=== PATIENT | female | born 1940 | race American Indian/Alaskan Native ===

== ENCOUNTER 2018-10-05 07:01 | Inpatient (IN) | payer OTHER ==
[2018-10-05] MEDS ORDERED: NACL 0.9% 1000 ML 1,000 ML IV ONE (08:13)
[2018-10-05] MEDS ORDERED: PROTONIX IV ONE (08:13)
[2018-10-05] MEDS ORDERED: ZOFRAN IV ONE (08:21)
[2018-10-05] MEDS ORDERED: MORPHINE IV ONE (08:21)
[2018-10-05] MEDS ORDERED: MERREM 1,000 MG in NACL 0.9% 100 ML IV ONE (08:22)
[2018-10-05 08:23] LABS: Basophils % (Auto) 0.3 % (0.0-1.8); Eosinophils # (Auto) 0.2 K/mm3 (0.0-0.4); Eosinophils % (Auto) 1.3 % (0.0-4.3); Hematocrit 34.6 % (30.3-42.9); Hemoglobin 11.5 gm/dl (10.1-14.3); Lymphocytes % (Auto) 6.9 % (13.4-35.0); Mean Corpuscular HGB Conc 33 % (30-34); Mean Corpuscular Volume 83 fl (79-97); Monocytes # (Auto) 1.8 K/mm3 (0.0-0.8); Monocytes % (Auto) 12.4 % (0.0-7.3); Platelet Count 379 K/mm3 (140-440); Red Blood Count 4.19 M/mm3 (3.65-5.03); Red Cell Distribution Width 14.9 % (13.2-15.2)
[2018-10-05 08:28] LABS: Bacteria,Urine 4+ /HPF (Negative); Bilirubin,Urine NEG (Negative); Blood,Urine MOD (Negative); Color,Urine Amber (Yellow); Mucus,Urine FEW /HPF
[2018-10-05 08:29] LABS: WBC,Urine > 182.0 /HPF (0.0-6.0)
[2018-10-05 08:31] LABS: Alanine Aminotransferase 36 units/L (7-56); Albumin 2.8 g/dL (3.9-5); BUN/Creatinine Ratio 13; Blood Urea Nitrogen 10 mg/dL (7-17); Calcium 9.7 mg/dL (8.4-10.2); Hemolysis Index 0
[2018-10-05] MEDS ORDERED: VANCOMYCIN 1,500 MG in NACL 0.9% 500 ML 500 ML IV ONE (08:45)
[2018-10-05] MEDS ORDERED: VANCOMYCIN PHARMACY TO DOSE IV SCH (09:00)
--- NOTE | 2018-10-05 09:28 | Emergency Department Report ---
ED Abdominal Pain HPI - General Chief Complaint: Abdominal Pain Stated Complaint: ABD PAIN Time Seen by Provider: 10/05/18 07:53 Source: patient, family Mode of arrival: Ambulatory Limitations: No Limitations - History of Present Illness Initial Comments: 78-year-old female from [place] with a history of reflux. She complains of non-postprandial abdominal pain in the epigastric region which is intermittent in nature. She is a poor historian. She is here with another lady who states that they went to a local physician and were given medicine for reflux. In addition the patient takes omeprazole chronically [place]. She's had no prior abdominal surgery. Pain does not apparently radiate. Has not been associated with fever or chills. She does not have a regular physician in this country but went to a "[facility] MD Complaint: abdominal pain -: days(s), week(s) Location: epigastric Radiation: none Migration to: no migration Quality: aching Consistency: intermittent Improves With: nothing Worsens With: nothing Associated Symptoms: constipation. denies: nausea, vomiting, diarrhea, fever, chills - Related Data Allergies Allergy/AdvReac Type Severity Reaction Status Date / Time No Known Allergies Allergy Unverified 10/05/18 07:11 ED Review of Systems ROS: Stated complaint: ABD PAIN Other details as noted in HPI Constitutional: denies: chills, fever Eyes: denies: eye pain, eye discharge, vision change ENT: denies: ear pain, throat pain Respiratory: denies: cough, shortness of breath, wheezing Cardiovascular: denies: chest pain, palpitations Endocrine: no symptoms reported Gastrointestinal: as per HPI (chronic reflux symptoms), abdominal pain. denies: diarrhea, constipation Genitourinary: denies: urgency, dysuria, discharge Musculoskeletal: denies: back pain, joint swelling, arthralgia Skin: denies: rash, lesions Neurological: denies: headache, weakness, paresthesias Psychiatric: denies: anxiety, depression Hematological/Lymphatic: denies: easy bleeding, easy bruising ED Past Medical Hx - Past Medical History Hx Hypertension: Yes Additional medical history: GERD - Surgical History Past Surgical History?: No - Social History Smoking Status: Never Smoker Substance Use Type: None ED Physical Exam - General Limitations: No Limitations General appearance: alert, in no apparent distress - Head Head exam: Present: atraumatic, normocephalic - Eye Eye exam: Present: normal appearance. Absent: scleral icterus - ENT ENT exam: Present: mucous membranes moist - Neck Neck exam: Present: normal inspection. Absent: tenderness, meningismus - Respiratory Respiratory exam: Present: normal lung sounds bilaterally. Absent: respiratory distress - Cardiovascular Cardiovascular Exam: Present: regular rate, normal rhythm. Absent: systolic mu rmur, diastolic murmur, rubs, gallop - GI/Abdominal GI/Abdominal exam: Present: soft, tenderness (mild epigastric tenderness), normal bowel sounds. Absent: distended, guarding, rebound, rigid, organomegaly, mass, bruit, pulsatile mass, hernia - Extremities Exam Extremities exam: Present: normal inspection - Back Exam Back exam: Present: normal inspection - Neurological Exam Neurological exam: Present: alert, oriented X3, CN II-XII intact. Absent: motor sensory deficit - Psychiatric Psychiatric exam: Present: normal affect, normal mood - Skin Skin exam: Present: warm, dry, intact, normal color. Absent: rash ED Course Vital Signs 10/05/18 10/05/18 10/05/18 07:15 08:02 08:04 Temperature 98.3 F 99.7 F H Pulse Rate 102 H 96 H Respiratory 18 17 17 Rate Blood Pressure 133/72 Blood Pressure 128/66 [Right] O2 Sat by Pulse 98 96 96 Oximetry - Reevaluation(s) Reevaluation #1: Discussed with hospitalist and admitted to their service. Surgical consultation. Antibiotic coverage. Surgery and urology consultation. 10/05/18 10:32 ED Medical Decision Making - Lab Data Result diagrams: 10/05/18 07:34 10/05/18 07:34 Laboratory Results - last 24 hr 10/05/18 10/05/18 10/05/18 07:34 07:34 07:34 WBC 14.6 H RBC 4.19 Hgb 11.5 Hct 34.6 MCV 83 MCH 28 MCHC 33 RDW 14.9 Plt Count 379 Lymph % (Auto) 6.9 L [place] % (Auto) 12.4 H Eos % (Auto) 1.3 Baso % (Auto) 0.3 Lymph # 1.0 L [place] # 1.8 H Eos # 0.2 Baso # 0.0 Seg Neutrophils % 79.1 H Seg Neutrophils # 11.5 H Sodium 136 L Potassium 3.3 L Chloride 94.1 L Carbon Dioxide 27 Anion Gap 18 BUN 10 Creatinine 0.8 Estimated GFR > 60 BUN/Creatinine Ratio 13 Glucose 106 H Calcium 9.7 Total Bilirubin 0.50 AST 41 H ALT 36 Alkaline Phosphatase 133 H Troponin T < 0.010 Total Protein 8.0 Albumin 2.8 L Albumin/Globulin Ratio 0.5 Lipase 16 Urine Color Urine Turbidity Urine pH Ur Specific [place] Urine Protein Urine Glucose (UA) Urine Ketones Urine Blood Urine Nitrite Urine Bilirubin Urine Urobilinogen Ur Leukocyte Esterase Urine WBC (Auto) Urine RBC (Auto) U Epithel Cells (Auto) Urine Bacteria (Auto) Urine WBC Clumps Ur Transition Epith Cell Urine Mucus 10/05/18 Unknown WBC RBC Hgb Hct MCV MCH MCHC RDW Plt Count Lymph % (Auto) [place] % (Auto) Eos % (Auto) Baso % (Auto) Lymph # [place] # Eos # Baso # Seg Neutrophils % Seg Neutrophils # Sodium Potassium Chloride Carbon Dioxide Anion Gap BUN Creatinine Estimated GFR BUN/Creatinine Ratio Glucose Calcium Total Bilirubin AST ALT Alkaline Phosphatase Troponin T Total Protein Albumin Albumin/Globulin Ratio Lipase Urine Color [place] Urine Turbidity Cloudy Urine pH 7.0 Ur Specific [place] 1.010 Urine Protein 30 mg/dl Urine Glucose (UA) Neg Urine Ketones Neg Urine Blood Mod Urine Nitrite Neg Urine Bilirubin Neg Urine Urobilinogen 2.0 Ur Leukocyte Esterase Lg Urine WBC (Auto) > 182.0 H Urine RBC (Auto) 26.0 U Epithel Cells (Auto) 2.0 Urine Bacteria (Auto) 4+ Urine WBC Clumps 3+ Ur Transition Epith Cell 3 Urine Mucus Few - EKG Data -: EKG Interpreted by Pr EKG shows normal: sinus rhythm, axis, intervals, QRS complexes, ST-T waves Rate: tachycardia (at 100) - EKG Data Interpretation: no acute changes, nonspecific ST-T wave basil - Radiology Data Radiology results: report reviewed FINDINGS: There is bibasilar atelectasis and/or infiltrate. The gallbladder is distended. There is a 4-5 cm irregular mass involving the gallbladder. Proximal to the mass in the gallbladder is distended and there are several gallstones. In addition there is an adjacent collection of fluid which extends only and probably communicates with the gallbladder. This may be a distended gallbladder fundus distal to the constricting mass or could be a adjacent choledocholithiasis or biloma. Findings are worrisome for malignancy. There is also biliary dilatation although mass does not appear to obstruct the CBD. The mass abuts and could involve the gastric antrum. There is a staghorn calculus in the left renal pelvis. There is moderate left hydronephrosis. There are small renal cysts bilaterally. There is a 3.1 cm left adrenal gland mass. There is also right adrenal gland thickening. There are aortoiliac atherosclerotic calcifications. There is no abdominal aortic aneurysm. There is no evidence for intestinal obstruction. The appendix is normal. There is diverticulosis predominantly involving the sigmoid colon. There is no acute diverticulitis seen. Bladder is unremarkable. There are small calcified uterine fibroids. IMPRESSION: 4-5 cm irregular gallbladder mass which is concerning for gallbladder malignancy. There is a fluid collection adjacent to the gallbladder which probably communicates with the gallbladder lumen. This could be a distended gallbladder fundus proximal to area of gallbladder constriction or could represent a biloma or a choledochocele. There is cholelithiasis. There is intrahepatic and extrahepatic biliary dilatation as well distention of the gallbladder distal to the mass. Findings are worrisome for distal biliary obstruction by a cause other than the described gallbladder mass. Distal CBD stone not seen. Small mass at the ampulla not excluded. Left staghorn calculus with moderate left hydronephrosis. Diverticulosis. No acute diverticulitis. Some bibasilar atelectasis and/or infiltrate seen. Critical care attestation.: If time is entered above; I have spent that time in minutes in the direct care of this critically ill patient, excluding procedure time. ED Disposition Clinical Impression: Cholecystitis, Staghorn calculus, Adrenal mass, left UTI (urinary tract infection) Qualifiers: Urinary tract infection type: site unspecified Hematuria presence: with hematuria Qualified Code(s): N39.0 - Urinary tract infection, site not specified; R31.9 - Hematuria, unspecified Abdominal pain Qualifiers: Abdominal location: unspecified location Qualified Code(s): R10.9 - Unspecified abdominal pain Disposition: OP ADMIT IP TO THIS HOSP Is pt being admited?: Yes Does the pt Need Aspirin: No Condition: Stable Instructions: Abdominal Pain (ED) Referrals: JONATHAN ACUNA MD [Primary Care Provider] - 3-5 Days Time of Disposition: 10:32
--- NOTE | 2018-10-05 10:15 | Cat Scan Report ---
PROCEDURE: CT ABDOMEN PELVIS W CON TECHNIQUE: CT of the abdomen and pelvis was performed. IV contrast was administered. Axial images and coronal and sagittal reformatted images were obtained. HISTORY: epigastric pain COMPARISON: None FINDINGS: There is bibasilar atelectasis and/or infiltrate. The gallbladder is distended. There is a 4-5 cm irregular mass involving the gallbladder. Proximal to the mass in the gallbladder is distended and there are several gallstones. In addition there is an a djacent collection of fluid which extends only and probably communicates with the gallbladder. This m ay be a distended gallbladder fundus distal to the constricting mass or could be a adjacent choledoch olithiasis or biloma. Findings are worrisome for malignancy. There is also biliary dilatation although mass does not appear to obstruct the CBD. The mass abuts and could involve the gastric antrum. There is a staghorn calculus in the left renal pelvis. There is moderate left hydronephrosis. There are small renal cysts bilaterally. There is a 3.1 cm left adrenal gland mass. There is also right adrenal gland thickening. There are aortoiliac atherosclerotic calcifications. There is no abdominal aortic aneurysm. There is no evidence for intestinal obstruction. The appendix is normal. There is diverticulosis predominantly involving the sigmoid colon. There is no acute diverticulitis s een. Bladder is unremarkable. There are small calcified uterine fibroids. IMPRESSION: 4-5 cm irregular gallbladder mass which is concerning for gallbladder malignancy. There is a fluid co llection adjacent to the gallbladder which probably communicates with the gallbladder lumen. This cou ld be a distended gallbladder fundus proximal to area of gallbladder constriction or could represent a biloma or a choledochocele. There is cholelithiasis. There is intrahepatic and extrahepatic biliary dilatation as well distention of the gallbladder distal to the mass. Findings are worrisome for distal biliary obstruction by a ca use other than the described gallbladder mass. Distal CBD stone not seen. Small mass at the ampulla n ot excluded. Left staghorn calculus with moderate left hydronephrosis. Diverticulosis. No acute diverticulitis. Some bibasilar atelectasis and/or infiltrate seen. This document is electronically signed by Geraldine Marinelli MD., October 05 2018 10:13:24 AM ET
--- NOTE | 2018-10-05 11:28 | Progress Note ---
Assessment and Plan Assessment and plan: Gallbladder mass. 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 There is a fluid collection adjacent to the gallbladder which probably communicates with the gallbladder lumen. This could be a distended gallbladder fundus proximal to area of gallbladder constriction or could represent a biloma or a choledochocele. Surgery consulted Sepsis. Etiology likely secondary to UTI. Follow-up blood and urine cultures. Continue antibiotics. Left staghorn calculus with moderate left hydronephrosis. Urology consulted. Gross hematuria. Etiology secondary to above. Diverticulosis. No acute diverticulitis. Cholelithiasis +/- Cholecystitis. Surgery consultation pending. Cont. IV abx History Interval history: 78-year-old female from [place] with a history of reflux. She complains of non-postprandial abdominal pain in the epigastric region which is intermittent in nature. She is a poor historian. She is here with another lady who states that they went to a local physician and were given medicine for reflux. In addition the patient takes omeprazole chronically [place]. She's had no prior abdominal surgery. Pain does not apparently radiate. Has not been associated with fever or chills. Hospitalist Physical - Constitutional Vitals: Temp Pulse Resp BP Pulse Ox 99.7 F H 90 18 152/77 96 10/05/18 08:02 10/05/18 10:45 10/05/18 10:45 10/05/18 10:45 10/05/18 08:04 General appearance: Present: no acute distress, well-nourished - EENT Eyes: Present: PERRL, EOM intact ENT: hearing intact, clear oral mucosa, dentition normal - Neck Neck: Present: supple, normal ROM - Respiratory Respiratory effort: normal Respiratory: bilateral: CTA - Cardiovascular Rhythm: regular Heart Sounds: Present: S1 & S2. Absent: gallop, rub - Extremities Extremities: no ischemia, No edema, Full ROM - Abdominal General gastrointestinal: soft, non-tender, non-distended, normal bowel sounds - Integumentary Integumentary: Present: clear, warm, dry - Neurologic Neurologic: CNII-XII intact, moves all extremities Results - Labs CBC & Chem 7: 10/05/18 07:34 10/05/18 07:34 Labs: Laboratory Last Values WBC 14.6 K/mm3 (4.5-11.0) H 10/05/18 07:34 RBC 4.19 M/mm3 (3.65-5.03) 10/05/18 07:34 Hgb 11.5 gm/dl (10.1-14.3) 10/05/18 07:34 Hct 34.6 % (30.3-42.9) 10/05/18 07:34 MCV 83 fl (79-97) 10/05/18 07:34 MCH 28 pg (28-32) 10/05/18 07:34 MCHC 33 % (30-34) 10/05/18 07:34 RDW 14.9 % (13.2-15.2) 10/05/18 07:34 Plt Count 379 K/mm3 (140-440) 10/05/18 07:34 Lymph % (Auto) 6.9 % (13.4-35.0) L 10/05/18 07:34 [place] % (Auto) 12.4 % (0.0-7.3) H 10/05/18 07:34 Eos % (Auto) 1.3 % (0.0-4.3) 10/05/18 07:34 Baso % (Auto) 0.3 % (0.0-1.8) 10/05/18 07:34 Lymph # 1.0 K/mm3 (1.2-5.4) L 10/05/18 07:34 [place] # 1.8 K/mm3 (0.0-0.8) H 10/05/18 07:34 Eos # 0.2 K/mm3 (0.0-0.4) 10/05/18 07:34 Baso # 0.0 K/mm3 (0.0-0.1) 10/05/18 07:34 Seg Neutrophils % 79.1 % (40.0-70.0) H 10/05/18 07:34 Seg Neutrophils # 11.5 K/mm3 (1.8-7.7) H 10/05/18 07:34 Sodium 136 mmol/L (137-145) L 10/05/18 07:34 Potassium 3.3 mmol/L (3.6-5.0) L 10/05/18 07:34 Chloride 94.1 mmol/L (98-107) L 10/05/18 07:34 Carbon Dioxide 27 mmol/L (22-30) 10/05/18 07:34 18 mmol/L 10/05/18 07:34 BUN 10 mg/dL (7-17) 10/05/18 07:34 0.8 mg/dL (0.7-1.2) 10/05/18 07:34 Estimated GFR > 60 ml/min 10/05/18 07:34 13 % 10/05/18 07:34 Glucose 106 mg/dL (65-100) H 10/05/18 07:34 Calcium 9.7 mg/dL (8.4-10.2) 10/05/18 07:34 0.50 mg/dL (0.1-1.2) 10/05/18 07:34 AST 41 units/L (5-40) H 10/05/18 07:34 ALT 36 units/L (7-56) 10/05/18 07:34 133 units/L (35-129) H 10/05/18 07:34 < 0.010 ng/mL (0.00-0.029) 10/05/18 07:34 8.0 g/dL (6.3-8.2) 10/05/18 07:34 2.8 g/dL (3.9-5) L 10/05/18 07:34 0.5 % 10/05/18 07:34 16 units/L (13-60) 10/05/18 07:34 [place] (Yellow) 10/05/18 Unknown Cloudy (Clear) 10/05/18 Unknown 7.0 (5.0-7.0) 10/05/18 Unknown Ur Specific [place] 1.010 (1.003-1.030) 10/05/18 Unknown 30 mg/dl mg/dL (Negative) 10/05/18 Unknown Neg mg/dL (Negative) 10/05/18 Unknown Neg mg/dL (Negative) 10/05/18 Unknown Mod (Negative) 10/05/18 Unknown Neg (Negative) 10/05/18 Unknown Neg (Negative) 10/05/18 Unknown 2.0 mg/dL (<2.0) 10/05/18 Unknown Ur Leukocyte Esterase Lg (Negative) 10/05/18 Unknown > 182.0 /HPF (0.0-6.0) H 10/05/18 Unknown 26.0 /HPF (0.0-6.0) 10/05/18 Unknown U Epithel Cells (Auto) 2.0 /HPF (0-13.0) 10/05/18 Unknown 4+ /HPF (Negative) 10/05/18 Unknown 3+ /HPF 10/05/18 Unknown Ur Transition Epith Cell 3 /HPF 10/05/18 Unknown Few /HPF 10/05/18 Unknown Active Medications - Current Medications Current Medications: Generic Name Dose Route Start Last Admin Trade Name Freq PRN Reason Stop Dose Admin Sodium Chloride 1,000 mls @ 125 mls/hr 10/05/18 08:13 10/05/18 10:07 Nacl 0.9% 1000 Ml IV 10/05/18 16:12 125 mls/hr ONCE ONE Administration
[2018-10-05] MEDS ORDERED: ZOFRAN IV PRN (11:45)
[2018-10-05] MEDS ORDERED: SODIUM CHLORIDE FLUSH SYRINGE 10 ML IV PRN (11:45)
[2018-10-05 12:29] LABS: Bacteria,Urine 1+ /HPF (Negative); Bilirubin,Urine NEG (Negative); Blood,Urine SM (Negative); Color,Urine Yellow (Yellow); Mucus,Urine FEW /HPF; Protein,Urine <15 mg/dL mg/dL (Negative); Urobilinogen,Urine < 2.0 mg/dL (<2.0)
--- NOTE | 2018-10-05 13:48 | Ultrasound Report ---
PROCEDURE: US ABDOMEN LIMITED TECHNIQUE: Sonography of the right upper quadrant abdomen performed. HISTORY: epigastric pain abn GB on CT COMPARISON: None FINDINGS: There is no focal liver lesions seen. There is mild intrahepatic and extrahepatic biliary dilatation. The proximal common bile duct measure s 8 mm. The gallbladder is distended. There is cholelithiasis, sludge and wall thickening. There is a complex masslike area involving the gallbladder fundus which measures 8.4 x 5.1 x 6.6 cm. This may be a comb ination of the mass and cystic structure seen on CT. Findings could be malignancy or represent an inf lammatory mass There is no right hydronephrosis. IMPRESSION: Distended gallbladder with cholelithiasis. Mild biliary dilatation. Complex mass involving the gallbladder fundus measuring 8.4 x 5.1 x 6.6 cm. This could be malignancy or represent an inflammatory mass. This document is electronically signed by Geraldine Marinelli MD., October 05 2018 01:46:34 PM ET
--- NOTE | 2018-10-05 17:05 | Consultation ---
History of Present Illness Consult date: 10/05/18 Reason for consult: abdominal pain Chief complaint: abdominal pain - History of present illness History of present illness: 78 yo F with hx of HTN presents to ER with c/o upper abdominal pain for the last 1week. She is visiting her family from [place]. She states the pain is crampy, started suddenly and is now intermittent and severe at times. It starts in the epigastrum and radiates to the right abdomen. She states she had pain like this before and was evaluated by physicians in [place]. She takes antacid medications. She denies f/c, cp, sob. She is having nausea but no vomiting. Last meal was yesterday at dinner. She states she was eating pizza when pain started. She is having BMs but states she is constipated Past History Past Medical History: hypertension Past Surgical History: No surgical history Social history: no significant social history Family history: no significant family history Medications and Allergies Allergies Allergy/AdvReac Type Severity Reaction Status Date / Time No Known Allergies Allergy Unverified 10/05/18 07:11 Active Meds: Active Medications Acetaminophen (Tylenol) 650 mg PO Q4H PRN PRN Reason: Pain MILD(1-3)/Fever >100.5/PHIPPS Enoxaparin Sodium (Lovenox) 40 mg SUB-Q QDAY@2200 CRYSTAL Vancomycin HCl 1,250 mg/ (Sodium Chloride) 275 mls @ 166.667 mls/hr IV Q12H CRYSTAL Cefepime HCl (Maxipime/Ns 2 Gm/100 Ml) 2 gm in 100 mls @ 200 mls/hr IV Q12HR CRYSTAL; Protocol Metronidazole (Flagyl 500 Mg/100 Ml) 500 mg in 100 mls @ 100 mls/hr IV Q8HR CRYSTAL; Protocol Ondansetron HCl (Zofran) 4 mg IV Q8H PRN PRN Reason: Nausea And Vomiting Sodium Chloride (Sodium Chloride Flush Syringe 10 Ml) 10 ml IV BID CRYSTAL Sodium Chloride (Sodium Chloride Flush Syringe 10 Ml) 10 ml IV PRN PRN PRN Reason: LINE FLUSH Review of Systems All systems: negative (10 pt ros performed and negative except for that listed in HPI) Exam Vital Signs Temp Pulse Resp BP Pulse Ox 98.3 F 102 H 18 133/72 98 10/05/18 07:15 10/05/18 07:15 10/05/18 07:15 10/05/18 07:15 10/05/18 07:15 Narrative exam: Gen: AAOx3. NAD ENT: no scleral icterus or conjunctival pallor CV: s1, s2+ resp; even and unlabored Abd: soft, ND, + RUQ and epigastric TTP. no r/r/g Ext: no c/c/e Results - Labs 10/05/18 07:34 10/05/18 07:34 Abnormal lab results 10/05/18 10/05/18 10/05/18 Range/Units 07:34 07:34 Unknown WBC 14.6 H (4.5-11.0) K/mm3 Lymph % (Auto) 6.9 L (13.4-35.0) % [place] % (Auto) 12.4 H (0.0-7.3) % Lymph # 1.0 L (1.2-5.4) K/mm3 [place] # 1.8 H (0.0-0.8) K/mm3 Seg Neutrophils % 79.1 H (40.0-70.0) % Seg Neutrophils # 11.5 H (1.8-7.7) K/mm3 Sodium 136 L (137-145) mmol/L Potassium 3.3 L (3.6-5.0) mmol/L Chloride 94.1 L (98-107) mmol/L Glucose 106 H (65-100) mg/dL AST 41 H (5-40) units/L Alkaline Phosphatase 133 H (35-129) units/L Albumin 2.8 L (3.9-5) g/dL Urine WBC (Auto) > 182.0 H (0.0-6.0) /HPF 10/05/18 Range/Units Unknown WBC (4.5-11.0) K/mm3 Lymph % (Auto) (13.4-35.0) % [place] % (Auto) (0.0-7.3) % Lymph # (1.2-5.4) K/mm3 [place] # (0.0-0.8) K/mm3 Seg Neutrophils % (40.0-70.0) % Seg Neutrophils # (1.8-7.7) K/mm3 Sodium (137-145) mmol/L Potassium (3.6-5.0) mmol/L Chloride (98-107) mmol/L Glucose (65-100) mg/dL AST (5-40) units/L Alkaline Phosphatase (35-129) units/L Albumin (3.9-5) g/dL Urine WBC (Auto) 141.0 H (0.0-6.0) /HPF Diabetes panel 10/05/18 Range/Units 07:34 Sodium 136 L (137-145) mmol/L Potassium 3.3 L (3.6-5.0) mmol/L Chloride 94.1 L (98-107) mmol/L Carbon Dioxide 27 (22-30) mmol/L BUN 10 (7-17) mg/dL Creatinine 0.8 (0.7-1.2) mg/dL Glucose 106 H (65-100) mg/dL Calcium 9.7 (8.4-10.2) mg/dL AST 41 H (5-40) units/L ALT 36 (7-56) units/L Alkaline Phosphatase 133 H (35-129) units/L Total Protein 8.0 (6.3-8.2) g/dL Albumin 2.8 L (3.9-5) g/dL Calcium panel 10/05/18 Range/Units 07:34 Calcium 9.7 (8.4-10.2) mg/dL Albumin 2.8 L (3.9-5) g/dL Pituitary panel 10/05/18 Range/Units 07:34 Sodium 136 L (137-145) mmol/L Potassium 3.3 L (3.6-5.0) mmol/L Chloride 94.1 L (98-107) mmol/L Carbon Dioxide 27 (22-30) mmol/L BUN 10 (7-17) mg/dL Creatinine 0.8 (0.7-1.2) mg/dL Glucose 106 H (65-100) mg/dL Calcium 9.7 (8.4-10.2) mg/dL Adrenal panel 10/05/18 Range/Units 07:34 Sodium 136 L (137-145) mmol/L Potassium 3.3 L (3.6-5.0) mmol/L Chloride 94.1 L (98-107) mmol/L Carbon Dioxide 27 (22-30) mmol/L BUN 10 (7-17) mg/dL Creatinine 0.8 (0.7-1.2) mg/dL Glucose 106 H (65-100) mg/dL Calcium 9.7 (8.4-10.2) mg/dL Total Bilirubin 0.50 (0.1-1.2) mg/dL AST 41 H (5-40) units/L ALT 36 (7-56) units/L Alkaline Phosphatase 133 H (35-129) units/L Total Protein 8.0 (6.3-8.2) g/dL Albumin 2.8 L (3.9-5) g/dL - Imaging CT scan - abdomen: report reviewed, image reviewed CT scan - pelvis: report reviewed, image reviewed US - abdomen: report reviewed, image reviewed Assessment and Plan 78 yo F with gallbladder mass, UTI Plan: 1. clear liquids, NPO p MN 2. MRI abdomen to further evaluate mass, GB, and liver, and biliary system 3. IV abx 4. prn pain control 5. IVF 6. tumor markers May need to consider transfer to tertiary care center if mass is found to invade adjacent structures. Discussed plan with patient. Thank you, please call with questions
[2018-10-05] MEDS: TYLENOL PO PRN ×2 (18:21→22:10)
[2018-10-05] MEDS: FLAGYL 500 MG/100 ML 500 MG/100 ML BAG IV SCH ×2 (18:21→22:21)
[2018-10-05] MEDS: MORPHINE IV PRN (19:39)
[2018-10-05] MEDS ORDERED: LOVENOX SUB-Q SCH (22:00)
[2018-10-05] MEDS: SODIUM CHLORIDE FLUSH SYRINGE 10 ML IV SCH (22:11)
[2018-10-05] MEDS: MAXIPIME/NS 2 GM/100 ML 2 GM/100 ML BAG IV SCH (22:11)
[2018-10-06] MEDS ORDERED: VANCOMYCIN 1,250 MG in NACL 0.9% 250ML 250 ML IV SCH ×2 (01:00→22:00)
[2018-10-06 06:18] LABS: BUN/Creatinine Ratio 14; Blood Urea Nitrogen 10 mg/dL (7-17); Hemolysis Index 69
[2018-10-06 06:20] LABS: Basophils # (Auto) 0.1 K/mm3 (0.0-0.1); Basophils % (Auto) 0.7 % (0.0-1.8); Eosinophils # (Auto) 0.2 K/mm3 (0.0-0.4); Eosinophils % (Auto) 1.6 % (0.0-4.3); Hematocrit 33.3 % (30.3-42.9); Hemoglobin 10.8 gm/dl (10.1-14.3); Lymphocytes % (Auto) 7.3 % (13.4-35.0); Mean Corpuscular HGB Conc 32 % (30-34); Mean Corpuscular Volume 84 fl (79-97); Monocytes # (Auto) 1.8 K/mm3 (0.0-0.8); Monocytes % (Auto) 13.4 % (0.0-7.3); Platelet Count 365 K/mm3 (140-440); Red Blood Count 3.97 M/mm3 (3.65-5.03)
[2018-10-06] MEDS: FLAGYL 500 MG/100 ML 500 MG/100 ML BAG IV SCH (06:21)
--- NOTE | 2018-10-06 08:23 | Consultation ---
History of Present Illness - Reason for Consult Consult date: 10/06/18 Past History Past Medical History: hypertension Past Surgical History: No surgical history Social history: no significant social history Family history: no significant family history Medications and Allergies Allergies Allergy/AdvReac Type Severity Reaction Status Date / Time No Known Allergies Allergy Unverified 10/05/18 07:11 Active Meds: Active Medications Acetaminophen (Tylenol) 650 mg PO Q4H PRN PRN Reason: Pain MILD(1-3)/Fever >100.5/PHIPPS Last Admin: 10/05/18 22:10 Dose: 650 mg Documented by: Enoxaparin Sodium (Lovenox) 40 mg SUB-Q QDAY@2200 CRYSTAL Last Admin: 10/05/18 22:11 Dose: 40 mg Documented by: Cefepime HCl (Maxipime/Ns 2 Gm/100 Ml) 2 gm in 100 mls @ 200 mls/hr IV Q12HR CRYSTAL; Protocol Last Admin: 10/05/18 22:11 Dose: 200 mls/hr Documented by: Metronidazole (Flagyl 500 Mg/100 Ml) 500 mg in 100 mls @ 100 mls/hr IV Q8HR CRYSTAL; Protocol Last Admin: 10/06/18 06:21 Dose: 100 mls/hr Documented by: Vancomycin HCl 1,250 mg/ (Sodium Chloride) 275 mls @ 166.667 mls/hr IV Q24H CRYSTAL Morphine Sulfate (Morphine) 2 mg IV Q4H PRN PRN Reason: ABD PAIN Last Admin: 10/05/18 19:39 Dose: 2 mg Documented by: Ondansetron HCl (Zofran) 4 mg IV Q8H PRN PRN Reason: Nausea And Vomiting Sodium Chloride (Sodium Chloride Flush Syringe 10 Ml) 10 ml IV BID [facility] Last Admin: 10/05/18 22:11 Dose: 10 ml Documented by: Sodium Chloride (Sodium Chloride Flush Syringe 10 Ml) 10 ml IV PRN PRN PRN Reason: LINE FLUSH Exam - Constitutional Vitals: Temp Pulse Resp BP Pulse Ox 98.7 F 84 18 138/64 96 10/06/18 05:25 10/06/18 05:25 10/06/18 05:25 10/06/18 05:25 10/06/18 05:25 Results - Labs CBC & Chem 7: 10/06/18 05:37 10/06/18 05:37 Labs: Abnormal lab results 10/05/18 10/05/18 10/05/18 Range/Units 07:34 07:34 Unknown WBC 14.6 H (4.5-11.0) K/mm3 MCH (28-32) pg Lymph % (Auto) 6.9 L (13.4-35.0) % [place] % (Auto) 12.4 H (0.0-7.3) % Lymph # 1.0 L (1.2-5.4) K/mm3 [place] # 1.8 H (0.0-0.8) K/mm3 Seg Neutrophils % 79.1 H (40.0-70.0) % Seg Neutrophils # 11.5 H (1.8-7.7) K/mm3 Sodium 136 L (137-145) mmol/L Potassium 3.3 L (3.6-5.0) mmol/L Chloride 94.1 L (98-107) mmol/L Glucose 106 H (65-100) mg/dL AST 41 H (5-40) units/L Alkaline Phosphatase 133 H (35-129) units/L Albumin 2.8 L (3.9-5) g/dL Urine WBC (Auto) > 182.0 H (0.0-6.0) /HPF 10/05/18 10/06/18 10/06/18 Range/Units Unknown 05:37 05:37 WBC 13.6 H (4.5-11.0) K/mm3 MCH 27 L (28-32) pg Lymph % (Auto) 7.3 L (13.4-35.0) % [place] % (Auto) 13.4 H (0.0-7.3) % Lymph # 1.0 L (1.2-5.4) K/mm3 [place] # 1.8 H (0.0-0.8) K/mm3 Seg Neutrophils % 77.0 H (40.0-70.0) % Seg Neutrophils # 10.5 H (1.8-7.7) K/mm3 Sodium (137-145) mmol/L Potassium 3.4 L (3.6-5.0) mmol/L Chloride (98-107) mmol/L Glucose (65-100) mg/dL AST (5-40) units/L Alkaline Phosphatase (35-129) units/L Albumin (3.9-5) g/dL Urine WBC (Auto) 141.0 H (0.0-6.0) /HPF Assessment and Plan CHRONIC LEFT HYDRO / STAGHORN GB MASS/ Lori - Disc w/ hospitalist & IR service yesterday - consult for eval nephrostomy tube - GS managing acute problem suspect problem chronic and prob not source - Will need future percutaneous nephrolithotomy
[2018-10-06] MEDS: MAXIPIME/NS 2 GM/100 ML 2 GM/100 ML BAG IV SCH (10:46)
[2018-10-06] MEDS: SODIUM CHLORIDE FLUSH SYRINGE 10 ML IV SCH (10:47)
[2018-10-06] MEDS: MORPHINE IV PRN (11:07)
--- NOTE | 2018-10-06 12:07 | Discharge Summary ---
Providers - Providers Date of Admission: 10/05/18 10:33 Date of discharge: 10/06/18 Attending physician: BONNIE ARGUETA 10/05/18 10:33 Consult to Physician [CONS] Urgent Comment: CLD DR REAVES'S OFC TO ADV OF CONSULT @11 Consulting Provider: MELANY REAVES Physician Instructions: Reason For Exam: pericholecystic fluid, gallstones, question malign 10/05/18 10:35 Consult to Physician [CONS] Urgent Comment: CLD OFC TO ADV OF CONSULT LFT MSSG @1111 Consulting Provider: ANU BLACKMON Physician Instructions: Reason For Exam: UTI with staghorn calculus 10/05/18 18:39 Consult to Physician [CONS] Routine Comment: Consulting Provider: LYNETTE CAIN Physician Instructions: Reason For Exam: Vascular [facility] Reason for admission: GB mass Condition: Stable Hospital course: 78 yo F with hx of HTN presents to ER with c/o upper abdominal pain for the last 1week. She is visiting her family from [place]. She states the pain is crampy, started suddenly and is now intermittent and severe at times. It starts in the epigastrum and radiates to the right abdomen. She states she had pain like this before and was evaluated by physicians in [place]. The patient was admitted with diagnosis of gallbladder mass, sepsis secondary to UTI, left staghorn calculus with moderate left hydronephrosis and gross hematuria. 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 There is a fluid collection adjacent to the gallbladder which probably communicates with the gallbladder lumen. This could be a distended gallbladder fundus proximal to area of gallbladder constriction or could represent a biloma or a choledochocele. Surgery consulted and felt patient needed to be transferred to a tertiary facility to perform gallbladder resection because it may be more involved than a simple resection. Patient will be transferred to [facility]. Dedicated discharge time 35 minutes. Disposition: [id number]/TX-02 [facility] IP Time spent for discharge: 35 - Discharge Diagnoses (1) Gallbladder mass Status: Acute (2) Abdominal pain Status: Acute Qualifiers: Abdominal location: unspecified location Qualified Code(s): R10.9 - Unspecified abdominal pain (3) Cholecystitis Status: Acute (4) Staghorn calculus Status: Acute (5) UTI (urinary tract infection) Status: Acute Qualifiers: Urinary tract infection type: site unspecified Hematuria presence: with hematuria Qualified Code(s): N39.0 - Urinary tract infection, site not specified; R31.9 - Hematuria, unspecified Core Measure Documentation - Palliative Care Palliative Care/ Comfort Measures: Not Applicable - Core Measures Any of the following diagnoses?: none Exam - Constitutional Vitals: Temp Pulse Resp BP Pulse Ox 98.7 F 84 18 138/64 96 10/06/18 05:25 10/06/18 05:25 10/06/18 05:25 10/06/18 05:25 10/06/18 05:25 General appearance: Present: no acute distress, well-nourished - EENT Eyes: Present: PERRL ENT: hearing intact, clear oral mucosa - Neck Neck: Present: supple, normal ROM - Respiratory Respiratory effort: normal Respiratory: bilateral: CTA - Cardiovascular Heart Sounds: Present: S1 & S2. Absent: rub, click - Extremities Extremities: pulses symmetrical, No edema Peripheral Pulses: within normal limits - Abdominal General gastrointestinal: Present: soft, non-tender, non-distended, normal bowel sounds Female genitourinary: Present: normal - Integumentary Integumentary: Present: clear, warm, dry - Musculoskeletal Musculoskeletal: gait normal, strength equal bilaterally - Psychiatric Psychiatric: appropriate mood/affect, intact judgment & insight - Neurologic Neurologic: CNII-XII intact, moves all extremities Plan Activity: advance as tolerated Weight Bearing Status: Weight Bear as Tolerated Diet: low fat, low cholesterol Follow up with: JONATHAN ACUNA MD [Primary Care Provider] - 3-5 Days
--- NOTE | 2018-10-06 12:09 | Event Note ---
Date: 10/06/18 Patient has been excepted for transfer to [facility], will not require Nephrostomy tube placement prior to transfer. Discussed this with the patient and Dr Jacome
[2018-10-06 12:20] VITALS: BP 153/82
--- NOTE | 2018-10-06 12:30 | History and Physical Report ---
History of Present Illness Date of examination: 10/05/18 Date of admission: 10/05/18 10:33 Chief complaint: abd pain History of present illness: 78-year-old female from [place] with a history of reflux. She complains of non-postprandial abdominal pain in the epigastric region which is intermittent in nature. She is a poor historian. She is here with another lady who states that they went to a local physician and were given medicine for reflux. In addition the patient takes omeprazole chronically [place]. She's had no prior abdominal surgery. Pain does not apparently radiate. Has not been associated with fever or chills. Past History Past Medical History: hypertension Past Surgical History: No surgical history Social history: no significant social history Family history: no significant family history Medications and Allergies Allergies Allergy/AdvReac Type Severity Reaction Status Date / Time No Known Allergies Allergy Unverified 10/05/18 07:11 Active Meds: Active Medications Acetaminophen (Tylenol) 650 mg PO Q4H PRN PRN Reason: Pain MILD(1-3)/Fever >100.5/PHIPPS Last Admin: 10/05/18 22:10 Dose: 650 mg Documented by: Enoxaparin Sodium (Lovenox) 40 mg SUB-Q QDAY@2200 CRYSTAL Last Admin: 10/05/18 22:11 Dose: 40 mg Documented by: Cefepime HCl (Maxipime/Ns 2 Gm/100 Ml) 2 gm in 100 mls @ 200 mls/hr IV Q12HR CRYSTAL; Protocol Last Admin: 10/06/18 10:46 Dose: 200 mls/hr Documented by: Metronidazole (Flagyl 500 Mg/100 Ml) 500 mg in 100 mls @ 100 mls/hr IV Q8HR CRYSTAL; Protocol Last Admin: 10/06/18 06:21 Dose: 100 mls/hr Documented by: Vancomycin HCl 1,250 mg/ (Sodium Chloride) 275 mls @ 166.667 mls/hr IV Q24H CRYSTAL Morphine Sulfate (Morphine) 2 mg IV Q4H PRN PRN Reason: ABD PAIN Last Admin: 10/06/18 11:07 Dose: 2 mg Documented by: Ondansetron HCl (Zofran) 4 mg IV Q8H PRN PRN Reason: Nausea And Vomiting Last Admin: 10/06/18 11:08 Dose: 4 mg Documented by: Sodium Chloride (Sodium Chloride Flush Syringe 10 Ml) 10 ml IV BID CRYSTAL Last Admin: 10/06/18 10:47 Dose: 10 ml Documented by: Sodium Chloride (Sodium Chloride Flush Syringe 10 Ml) 10 ml IV PRN PRN PRN Reason: LINE FLUSH Review of Systems All systems: negative Exam - Constitutional Vitals: Temp Pulse Resp BP Pulse Ox 98.5 F 95 H 20 153/82 93 10/06/18 11:20 10/06/18 11:20 10/06/18 11:20 10/06/18 11:20 10/06/18 11:20 General appearance: Present: no acute distress, well-nourished - EENT Eyes: Present: PERRL ENT: hearing intact, clear oral mucosa - Neck Neck: Present: supple, normal ROM - Respiratory Respiratory effort: normal Respiratory: bilateral: CTA - Cardiovascular Heart Sounds: Present: S1 & S2. Absent: rub, click - Extremities Extremities: pulses symmetrical, No edema Peripheral Pulses: within normal limits - Abdominal General gastrointestinal: Present: soft, non-tender, non-distended, normal bowel sounds Female genitourinary: Present: normal - Integumentary Integumentary: Present: clear, warm, dry - Musculoskeletal Musculoskeletal: gait normal, strength equal bilaterally - Psychiatric Psychiatric: appropriate mood/affect, intact judgment & insight - Neurologic Neurologic: CNII-XII intact, moves all extremities Results - Labs CBC & Chem 7: 10/06/18 05:37 10/06/18 05:37 Labs: Laboratory Last Values WBC 13.6 K/mm3 (4.5-11.0) H 10/06/18 05:37 RBC 3.97 M/mm3 (3.65-5.03) 10/06/18 05:37 Hgb 10.8 gm/dl (10.1-14.3) 10/06/18 05:37 Hct 33.3 % (30.3-42.9) 10/06/18 05:37 MCV 84 fl (79-97) 10/06/18 05:37 MCH 27 pg (28-32) L 10/06/18 05:37 MCHC 32 % (30-34) 10/06/18 05:37 RDW 15.0 % (13.2-15.2) 10/06/18 05:37 Plt Count 365 K/mm3 (140-440) 10/06/18 05:37 Lymph % (Auto) 7.3 % (13.4-35.0) L 10/06/18 05:37 [place] % (Auto) 13.4 % (0.0-7.3) H 10/06/18 05:37 Eos % (Auto) 1.6 % (0.0-4.3) 10/06/18 05:37 Baso % (Auto) 0.7 % (0.0-1.8) 10/06/18 05:37 Lymph # 1.0 K/mm3 (1.2-5.4) L 10/06/18 05:37 [place] # 1.8 K/mm3 (0.0-0.8) H 10/06/18 05:37 Eos # 0.2 K/mm3 (0.0-0.4) 10/06/18 05:37 Baso # 0.1 K/mm3 (0.0-0.1) 10/06/18 05:37 Seg Neutrophils % 77.0 % (40.0-70.0) H 10/06/18 05:37 Seg Neutrophils # 10.5 K/mm3 (1.8-7.7) H 10/06/18 05:37 Sodium 138 mmol/L (137-145) 10/06/18 05:37 Potassium 3.4 mmol/L (3.6-5.0) L 10/06/18 05:37 Chloride 100.0 mmol/L (98-107) 10/06/18 05:37 Carbon Dioxide 27 mmol/L (22-30) 10/06/18 05:37 14 mmol/L 10/06/18 05:37 BUN 10 mg/dL (7-17) 10/06/18 05:37 0.7 mg/dL (0.7-1.2) 10/06/18 05:37 Estimated GFR > 60 ml/min 10/06/18 05:37 14 % 10/06/18 05:37 Glucose 97 mg/dL (65-100) 10/06/18 05:37 Calcium 9.0 mg/dL (8.4-10.2) 10/06/18 05:37 0.50 mg/dL (0.1-1.2) 10/05/18 07:34 AST 41 units/L (5-40) H 10/05/18 07:34 ALT 36 units/L (7-56) 10/05/18 07:34 133 units/L (35-129) H 10/05/18 07:34 < 0.010 ng/mL (0.00-0.029) 10/05/18 07:34 8.0 g/dL (6.3-8.2) 10/05/18 07:34 2.8 g/dL (3.9-5) L 10/05/18 07:34 0.5 % 10/05/18 07:34 16 units/L (13-60) 10/05/18 07:34 [place] (Yellow) 10/05/18 Unknown Yellow (Yellow) 10/05/18 Unknown Cloudy (Clear) 10/05/18 Unknown Slightly-cloudy (Clear) 10/05/18 Unknown 7.0 (5.0-7.0) 10/05/18 Unknown 7.0 (5.0-7.0) 10/05/18 Unknown Ur Specific [place] 1.010 (1.003-1.030) 10/05/18 Unknown Ur Specific [place] 1.030 (1.003-1.030) 10/05/18 Unknown 30 mg/dl mg/dL (Negative) 10/05/18 Unknown <15 mg/dl mg/dL (Negative) 10/05/18 Unknown Neg mg/dL (Negative) 10/05/18 Unknown Neg mg/dL (Negative) 10/05/18 Unknown Neg mg/dL (Negative) 10/05/18 Unknown Neg mg/dL (Negative) 10/05/18 Unknown Mod (Negative) 10/05/18 Unknown Sm (Negative) 10/05/18 Unknown Neg (Negative) 10/05/18 Unknown Neg (Negative) 10/05/18 Unknown Neg (Negative) 10/05/18 Unknown Neg (Negative) 10/05/18 Unknown 2.0 mg/dL (<2.0) 10/05/18 Unknown < 2.0 mg/dL (<2.0) 10/05/18 Unknown Ur Leukocyte Esterase Lg (Negative) 10/05/18 Unknown Ur Leukocyte Esterase Lg (Negative) 10/05/18 Unknown 141.0 /HPF (0.0-6.0) H 10/05/18 Unknown > 182.0 /HPF (0.0-6.0) H 10/05/18 Unknown 5.0 /HPF (0.0-6.0) 10/05/18 Unknown 26.0 /HPF (0.0-6.0) 10/05/18 Unknown U Epithel Cells (Auto) 2.0 /HPF (0-13.0) 10/05/18 Unknown 1+ /HPF (Negative) 10/05/18 Unknown 4+ /HPF (Negative) 10/05/18 Unknown 3+ /HPF 10/05/18 Unknown Ur Transition Epith Cell 3 /HPF 10/05/18 Unknown Few /HPF 10/05/18 Unknown Few /HPF 10/05/18 Unknown Blood Type O POSITIVE 10/05/18 13:23 Antibody Screen Negative 10/05/18 13:23 Assessment and Plan Assessment and plan: Gallbladder mass. 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 There is a fluid collection adjacent to the gallbladder which probably communicates with the gallbladder lumen. This could be a distended gallbladder fundus proximal to area of gallbladder constriction or could represent a biloma or a choledochocele. Surgery consulted Sepsis. Etiology likely secondary to UTI. Follow-up blood and urine cultures. Continue antibiotics. Left staghorn calculus with moderate left hydronephrosis. Urology consulted. Gross hematuria. Etiology secondary to above. Diverticulosis. No acute diverticulitis. Cholelithiasis +/- Cholecystitis. Surgery consultation pending. Cont. IV abx - Patient Problems (1) Gallbladder mass Current Visit: Yes Status: Acute (2) Abdominal pain Current Visit: Yes Status: Acute Qualifiers: Abdominal location: unspecified location Qualified Code(s): R10.9 - Unspecified abdominal pain (3) Cholecystitis Current Visit: Yes Status: Acute (4) Staghorn calculus Current Visit: Yes Status: Acute (5) UTI (urinary tract infection) Current Visit: Yes Status: Acute Qualifiers: Urinary tract infection type: site unspecified Hematuria presence: with hematuria Qualified Code(s): N39.0 - Urinary tract infection, site not specified; R31.9 - Hematuria, unspecified
--- NOTE | 2018-10-06 13:06 | Progress Note ---
Assessment and Plan 78 yo F with 1. gallbladder mass - concerning for malignancy 2. UTI 3. staghorn calculus with hydronephrosis Plan: 1. clear liquids 2. MRI abdomen to further evaluate mass, GB, and liver, and biliary system - cannot be done until tomorrow 10/07 3. IV abx 4. prn pain control 5. IVF 6. tumor markers drawn 7. 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 I feel she would be better served at a [facility] where surgical w/u and treatment can be performed. Patient may require more than just cholecystectomy and should be seen by Hepatobiliary surgeon or Surgical Oncology. I have discussed the case with Dr. Cruz at [place] and patient has been accepted to be transferred to [place] for further care. Dr. Cruz is aware of hydronephrosis and plan for perc nephrostomy and advised to send patient anyway and this can be done at [place]. I spoke with patient and her daughter to explain the plan at length. They are agreeable for transfer and paperwork has been signed. D/W Dr. Lema and Dr. Rousseau Thank you, please call with questions Subjective Date of service: 10/06/18 Narrative: Pt seen and examined. Still with upper abdominal pain. No n/v. No f/c. Patient at first denied surgical history but now admits to having an operation 50 years ago for perforated gastric ulcer. Objective Vital Signs - 12hr 10/06/18 10/06/18 05:25 11:20 Temperature 98.7 F 98.5 F Pulse Rate 84 95 H Respiratory 18 20 Rate Blood Pressure 138/64 153/82 O2 Sat by Pulse 96 93 Oximetry - General physical appearance Narrative Exam: Gen: AAOx3. NAD ENT: no scleral icterus or conjunctival pallor CV: S1, S2+ Resp: even and unlabored Abd: soft, ND, +TTP epigastrum and RUQ. no r/r/g. Faint upper midline scar, well healed Ext; no c/c/e - Labs 10/06/18 05:37 10/06/18 05:37 Diabetes panel 10/06/18 Range/Units 05:37 Sodium 138 (137-145) mmol/L Potassium 3.4 L (3.6-5.0) mmol/L Chloride 100.0 (98-107) mmol/L Carbon Dioxide 27 (22-30) mmol/L BUN 10 (7-17) mg/dL Creatinine 0.7 (0.7-1.2) mg/dL Glucose 97 (65-100) mg/dL Calcium 9.0 (8.4-10.2) mg/dL Calcium panel 10/06/18 Range/Units 05:37 Calcium 9.0 (8.4-10.2) mg/dL Pituitary panel 10/06/18 Range/Units 05:37 Sodium 138 (137-145) mmol/L Potassium 3.4 L (3.6-5.0) mmol/L Chloride 100.0 (98-107) mmol/L Carbon Dioxide 27 (22-30) mmol/L BUN 10 (7-17) mg/dL Creatinine 0.7 (0.7-1.2) mg/dL Glucose 97 (65-100) mg/dL Calcium 9.0 (8.4-10.2) mg/dL Adrenal panel 10/06/18 Range/Units 05:37 Sodium 138 (137-145) mmol/L Potassium 3.4 L (3.6-5.0) mmol/L Chloride 100.0 (98-107) mmol/L Carbon Dioxide 27 (22-30) mmol/L BUN 10 (7-17) mg/dL Creatinine 0.7 (0.7-1.2) mg/dL Glucose 97 (65-100) mg/dL Calcium 9.0 (8.4-10.2) mg/dL
== END 2018-10-06 14:20 | disposition short-term general hospital (02) | DRG 872 ==
LOC: ED 07:01 → 3A 10:33
PROVIDERS: ADMIT Hospitalist; ATTEND Hospitalist
DX: A41.9 Sepsis, unspecified organism (principal); N13.6 Pyonephrosis; K80.10 Calculus of gallbladder with chronic cholecystitis without obstruction; I10 Essential (primary) hypertension; R31.0 Gross hematuria; K21.9 Gastro-esophageal reflux disease without esophagitis; K82.8 Other specified diseases of gallbladder; Z79.899 Other long term (current) drug therapy
CPT/HCPCS: 36415; 74177; 76705; 80048; 80053; 81001; 82106; 82378; 83690; 84484; 85025; 86301; 86850; 86900; 86901; 87040; 87086; 93005; 93010; G0378; C9113; J0692; J1650; J2185; J2270; J2405; J3370; J7030; J7040; J7050; Q9967